=== PATIENT | female | born 1990 | race African-American/Black ===

== ENCOUNTER 2018-03-11 17:38 | Emergency (ER) | payer SELFPAY ==
[~2018-03-11] VITALS: Ht 167.6 cm; Wt 84.0 kg
[2018-03-11 18:04] VITALS: BP 115/69
[2018-03-11] MEDS ORDERED: FLUCONAZOLE 100MG TABLET PO ONE (18:45)
== END 2018-03-11 19:04 | disposition home or self-care (01) ==
LOC: ER 17:38
DX: B37.3 Candidiasis of vulva and vagina (principal); J45.909 Unspecified asthma, uncomplicated; Z76.0 Encounter for issue of repeat prescription
CPT/HCPCS: 99283; Z7610